=== PATIENT | female | born 1990 | race Two or more races ===

== ENCOUNTER 2023-02-06 00:05 | Emergency (ER) | payer OTHER ==
[~2023-02-06] VITALS: Ht 152.4 cm; Wt 78.9 kg
[2023-02-06] MEDS ORDERED: ZITHROMAX500 MG PO (03:50)
== END 2023-02-06 04:33 ==
LOC: ER 00:05
DX: S01.02XA Laceration with foreign body of scalp, initial encounter (principal); W45.8XXA Other foreign body or object entering through skin, initial encounter; Y93.89 Activity, other specified; Y92.413 State road as the place of occurrence of the external cause